=== PATIENT | male | born 1965 | race Caucasian/White ===

== ENCOUNTER 2019-10-22 08:28 | Emergency (ER) | payer OTHER ==
[~2019-10-22] VITALS: Ht 180.3 cm; Wt 127.0 kg
[2019-10-22] MEDS ORDERED: IV NORMAL SALINE 1000ML BAG 1,000 ML IV SCH (08:34)
--- NOTE | 2019-10-22 08:35 | PHYS DOC ---
Past Medical History Past Medical History: No Pertinent History Smoking Status: Never Smoker General Adult EDM: Chief Complaint: NAUSEA/VOMITING/DIARRHA HPI: HPI: 53-year-old male presents with a 1-1/2-hour history of nausea and dry heaving. Patient denies any diarrhea but feels like he may have some loose stools soon. Patient denies abdominal pain. Patient doubled the dose of DULOXETINE this morning and drank coffee with this on empty stomach which may be the cause of his symptoms. Patient also describes some transient muscle cramp-like pain in the left chest the last 30 seconds at a time that happens every several minutes. Patient denies any radiation of this pain or shortness of breath. Patient denies any fevers chills or cough or shortness of breath. Patient states that chest pain is worse when he feels anxious which he does now Review of Systems: Review of Systems: Constitutional: Denies fever or chills. [] Eyes: Denies change in visual acuity. [] HENT: Denies nasal congestion or sore throat. [] Respiratory: Denies cough or shortness of breath. [] Cardiovascular: Describes transient chest pain that feels like a muscle cramp, no pedal edema GI: Denies abdominal pain diarrhea or bloody stool complains of nausea : Denies dysuria. [] Musculoskeletal: Denies back pain or joint pain. [] Integument: Denies rash. [] Neurologic: Denies headache, focal weakness or sensory changes. [] Endocrine: Denies polyuria or polydipsia. [] Lymphatic: Denies swollen glands. [] Psychiatric: Denies depression or anxiety. [] Heart Score: Risk Factors: Risk Factors: DM, Current or recent (<one month) smoker, HTN, HLP, family history of CAD, obesity. Risk Scores: Score 0 - 3: 2.5% MACE over next 6 weeks - Discharge Home Score 4 - 6: 20.3% MACE over next 6 weeks - Admit for Clinical Observation Score 7 - 10: 72.7% MACE over next 6 weeks - Early Invasive Strategies Physical Exam: PE: Constitutional: Well developed, well nourished, no acute distress, non-toxic a ppearance. [] HENT: Normocephalic, atraumatic, bilateral external ears normal, no trismus nose normal. [] Eyes: PERRLA, EOMI, conjunctiva normal, no discharge. [] Neck: Normal range of motion, no tenderness, supple, no stridor. [] Cardiovascular:Heart rate regular rhythm, Lungs & Thorax: No respiratory distress Abdomen: soft, no tenderness, no masses, no pulsatile masses. [] Skin: Warm, dry, no erythema, no rash. [] Back: No tenderness, no CVA tenderness. [] Extremities: No tenderness, no cyanosis, no clubbing, ROM intact, no edema. [] Neurologic: Alert and oriented X 3, normal motor function, normal sensory function, no focal deficits noted. [] Psychologic: Affect normal, judgement normal, mood normal. [] Current Patient Data: Labs: Laboratory Tests Test 10/22/19 08:37 10/22/19 08:50 Urine Collection Type Unknown Urine Color Yellow Urine Clarity Clear Urine pH 7.0 Urine Specific Irving 1.020 Urine Protein Negative mg/dL Urine Glucose (UA) Negative mg/dL Urine Ketones (Stick) Negative mg/dL Urine Blood Negative Urine Nitrite Negative Urine Bilirubin Negative Urine Urobilinogen Dipstick 0.2 mg/dL Urine Leukocyte Esterase Negative Urine RBC 1-2 /HPF Urine WBC 0 /HPF Urine Squamous Epithelial Cells Few /LPF Urine Bacteria 0 /HPF Urine Mucus Slight /LPF White Blood Count 4.5 x10^3/uL Red Blood Count 4.55 x10^6/uL Hemoglobin 14.3 g/dL Hematocrit 41.6 % Mean Corpuscular Volume 92 fL Mean Corpuscular Hemoglobin 31 pg Mean Corpuscular Hemoglobin Concent 34 g/dL Red Cell Distribution Width 14.1 % Platelet Count 239 x10^3/uL Neutrophils (%) (Auto) 60 % Lymphocytes (%) (Auto) 29 % Monocytes (%) (Auto) 9 % Eosinophils (%) (Auto) 2 % Basophils (%) (Auto) 0 % Neutrophils # (Auto) 2.7 x10^3/uL Lymphocytes # (Auto) 1.3 x10^3/uL Monocytes # (Auto) 0.4 x10^3/uL Eosinophils # (Auto) 0.1 x10^3/uL Basophils # (Auto) 0.0 x10^3/uL Sodium Level 134 mmol/L Potassium Level 4.3 mmol/L Chloride Level 100 mmol/L Carbon Dioxide Level 27 mmol/L Anion Gap 7 Blood Urea Nitrogen 13 mg/dL Creatinine 1.1 mg/dL Estimated GFR (Cockcroft-Gault) 70.6 BUN/Creatinine Ratio 12 Glucose Level 110 mg/dL Calcium Level 8.7 mg/dL Total Bilirubin 0.4 mg/dL Aspartate Amino Transf (AST/SGOT) 16 U/L Alanine Aminotransferase (ALT/SGPT) 29 U/L Alkaline Phosphatase 61 U/L Troponin I Quantitative < 0.017 ng/mL Total Protein 6.8 g/dL Albumin 3.8 g/dL Albumin/Globulin Ratio 1.3 Lipase 60 U/L Current Medications Medications (Trade) Dose Ordered Sig/Dandre Route PRN Reason Start Time Stop Time Status Last Admin Dose Admin Sodium Chloride 1,000 ml @ 1,000 mls/hr Q1H IV 10/22/19 08:34 10/22/19 09:34 DC 10/22/19 08:52 Ondansetron HCl (Zofran) 4 mg 1X ONCE IVP 10/22/19 08:45 10/22/19 09:02 DC 10/22/19 08:52 Vital Signs: Vital Signs Date Time Temp Pulse Resp B/P (MAP) Pulse Ox O2 Delivery O2 Flow Rate FiO2 10/22/19 10:00 58 18 164/86 (112) 98 Room Air 10/22/19 09:30 64 18 168/82 (110) 98 Room Air 10/22/19 09:00 54 18 168/90 (116) 97 Room Air 10/22/19 08:39 97.8 60 18 181/94 (123) 98 Room Air 97.8 EKG: EKG: EKG interpreted by me sinus bradycardia with a rate of 54 left axis deviation first-degree AV block nonspecific ST changes [] Radiology/Procedures: Radiology/Procedures: [][facility] [address] [place], [place] [id number] IMAGING REPORT Signed PATIENT: JEFF GARRISON ACCOUNT: [id number] : 1965 LOCATION: ER AGE: 53 SEX: M EXAM STATUS: REG ER ORD. PHYSICIAN: GAYATRI SUMMERS MD REASON: c/ap PROCEDURE: ACUTE ABDOMEN SERIES PROCEDURE: ACUTE ABDOMEN SERIES STUDY DATE: 10/22/2019 CLINICAL INDICATION / HISTORY: Reason: c/ap / Spl. Instructions: / History: . TECHNIQUE: Upright PA chest, supine and decubitus films of the abdomen were obtained. COMPARISON: No relevant comparisons currently available FINDINGS: AP view the chest reveals the lungs to be clear. Cardiac and mediastinal silhouette are unremarkable. No free air is identified below the diaphragms. Supine and decubitus views of the abdomen reveal no dilated loops of bowel or air-fluid levels. No organomegaly is present. No destructive osseous lesions. IMPRESSION: No radiographic evidence for bowel obstruction. Electronically signed by: Giuliana Mehta MD (10/22/2019 9:58 AM) [id number] DICTATED and SIGNED BY: GIULIANA MEHTA MD DATE: 10/22/19 0958 Course & Med Decision Making: Course & Med Decision Making Pertinent Labs and Imaging studies reviewed. (See chart for details) [] Reassessment at 1150. Patient feels much better. Patient no distress. D iscussed with patient possible admission for serial enzymes and rule out myocardial infarction. Patient competent declines this. Signs and symptoms most likely due to increasing his medication. I doubt acute coronary syndrome or pulmonary bruising. Patient does feel significantly better after treatment in ER. Return precautions given. Desirae Disclaimer: Desirae Disclaimer: This electronic medical record was generated, in whole or in part, using a voice recognition dictation system. Departure Departure Impression: Primary Impression: Nausea Disposition: 01 HOME, SELF-CARE Condition: STABLE Referrals: [facility] 2-3 DAYS Patient Instructions: Nausea, Adult Additional Instructions: EMERGENCY DEPARTMENT GENERAL DISCHARGE INSTRUCTIONS THANK YOU for coming to [facility] Emergency Department (ED) today and trusting us with your care. We trust that you had a positive experience in our Emergency Department. If you wish to speak to the department Management you can contact the department helper at . YOUR FOLLOW UP INSTRUCTIONS ARE FOLLOWS: Do you have a private doctor? If you do not have a private doctor, please ask for a resource list of physicians or clinics that may be able to assist you with follow up care. The Emergency Physician has interpreted your x-rays. The X-ray specialist will also review them. If there is a change in the findings you will be notified in 48 hours when at all possible. A lab test or lab culture may have been done, your results will be reviewed and you will be notified if you need a change in treatment. ADDITIONAL INSTRUCTIONS AND INFORMATION Your care today has been supervised by a physician who is specially trained in emergency care. Many problems require more than one evaluation for a complete diagnosis an d treatment. We recommend that you schedule your follow up appointment as recommended to ensure complete treatment of your illness or injury. If you are unable to obtain follow up care and continue to have a problem, or if your condition worsens we recommend that you return to the ED. We are not able to safely determine your condition over the phone nor are we able to give sound medical advice over the phone. For these safety reasons, if you call for medical advice we will ask you to come to the ED for further evaluation If you have any questions regarding these discharge instructions please call the ED at . SAFETY INFORMATION In the interest of safety, wellness, and injury prevention; we encourage you to wear your seatbelt, if you smoke; quit smoking, and we encourage your family to use protective helmet for bicycling and other sporting events that present an increased risk for head injury. IF YOUR SYMPTOMS WORSEN OR NEW SYMPTOMS DEVELOP, OR YOU HAVE CONCERNS ABOUT YOUR CONDITION; OR IF YOUR CONDITION WORSENS WHILE YOU ARE WAITING FOR YOUR FOLLOW UP APPOINTMENT; EITHER CONTACT YOUR PRIMARY CARE DOCTOR, THE PHYSICIAN WHOSE NAME AND NUMBER YOU WERE GIVEN, OR RETURN TO THE ED IMMEDIATELY. Scripts Ondansetron Hcl (ZOFRAN) 4 Mg Tablet 1 TAB PO PRN Q6-8HRS for NAUSEA, #12 TAB Prov: GAYATRI SUMMERS MD 10/22/19 Justicifation of Admission Dx: Justifications for Admission: Justification of Admission Dx: N/A GAYATRI SUMMERS MD Oct 22, 2019 08:35
[2019-10-22] MEDS ORDERED: ONDANSETRON PF 4 MG/2 ML VIAL. IVP ONE (08:45)
[2019-10-22 08:50] LABS: BILIRUBIN,URINE NEGATIVE (NEG); CLARITY,URINE CLEAR; COLOR,URINE YELLOW; NITRITE,URINE NEGATIVE (NEG); PROTEIN,URINE NEGATIVE (NEG-TRACE); UROBILINOGEN,URINE 0.2 mg/dL (0.2 mg/dL)
[2019-10-22 09:00] LABS: BACTERIA,URINE 0 /HPF (0-FEW); SQUAMOUS EPITHELIAL CELL,UR FEW /LPF; WBC,URINE 0 /HPF (0-4)
[2019-10-22 09:05] LABS: BASO % 0 % (0-3); EOS # 0.1 x10^3/uL (0.0-0.7); EOS % 2 % (0-3); HEMATOCRIT 41.6 % (39.0-53.0); HEMOGLOBIN 14.3 g/dL (13.0-17.5); LYMPH # 1.3 x10^3/uL (1.0-4.8); LYMPH % 29 % (24-48); MEAN CORPUSCULAR HEMOGLOBIN 31 pg (25-35); MEAN CORPUSCULAR HGB CONC 34 g/dL (31-37); MEAN CORPUSCULAR VOLUME 92 fL (79-100); MONO # 0.4 x10^3/uL (0.0-1.1); MONO % 9 % (0-9); NEUT # 2.7 x10^3/uL (1.8-7.7); NEUT % 60 % (31-73); PLATELET COUNT 239 x10^3/uL (140-400); RED BLOOD COUNT 4.55 x10^6/uL (4.30-5.70); RED CELL DISTRIBUTION WIDTH 14.1 % (11.5-14.5); WHITE BLOOD COUNT 4.5 x10^3/uL (4.0-11.0)
[2019-10-22 09:15] LABS: CALCIUM 8.7 mg/dL (8.5-10.1); CREATININE 1.1 mg/dL (0.7-1.3); GFR 70.6; POTASSIUM 4.3 mmol/L (3.5-5.1)
[2019-10-22 09:20] LABS: ALBUMIN 3.8 g/dL (3.4-5.0); ALBUMIN/GLOBULIN RATIO 1.3 (1.0-1.7); TOTAL BILIRUBIN 0.4 mg/dL (0.2-1.0); TOTAL PROTEIN 6.8 g/dL (6.4-8.2)
[2019-10-22 10:00] VITALS: BP 164/86
--- NOTE | 2019-10-22 10:01 | RAD ---
PROCEDURE: ACUTE ABDOMEN SERIES STUDY DATE: 10/22/2019 CLINICAL INDICATION / HISTORY: Reason: c/ap / Spl. Instructions: / History: . TECHNIQUE: Upright PA chest, supine and decubitus films of the abdomen were obtained. COMPARISON: No relevant comparisons currently available FINDINGS: AP view the chest reveals the lungs to be clear. Cardiac and mediastinal silhouette are unremarkable. No free air is identified below the diaphragms. Supine and decubitus views of the abdomen reveal no dilated loops of bowel or air-fluid levels. No organomegaly is present. No destructive osseous lesions. IMPRESSION: No radiographic evidence for bowel obstruction. Electronically signed by: Odessa Mehta MD (10/22/2019 9:58 AM) [id number]
[2019-10-22] MEDS ORDERED: ONDA4TAB7 PO (11:54)
--- NOTE | 2019-10-23 03:37 | EKG ---
[facility] [address] [place] [address] Test Date: 2019-10-22 Test Time: 08:46:09 Pat Name: JEFF GARRISON Department: Room: Gender: M [employer] Forms: : 1965 Requested By: GAYATRI SUMMERS Order Number: [id number] Reading MD: Measurements Intervals [place] Rate: 54 P: [place]: QRS: -7 QRSD: 100 T: 13 QT: 442 QTc: 421 Interpretive Statements IRREGULAR RHYTHM, NO P-WAVE FOUND LEFTWARD AXIS NO SPECIFIC ECG ABNORMALITIES RI6.01 No previous ECG available for comparison
== END 2019-10-22 12:04 | disposition home or self-care (01) ==
LOC: ER 08:28
DX: R11.0 Nausea (principal)
CPT/HCPCS: 36415; 74022; 80053; 81001; 83690; 84484; 85025; 96361; 96374; 99285; J2405; J7030; 93005